=== PATIENT | male | born 1950 | race Asian ===

== ENCOUNTER 2024-04-17 15:57 | Inpatient (IN) | payer MEDICARE, OTHER ==
[~2024-04-17] VITALS: Ht 165.1 cm; Wt 45.4 kg
[2024-04-17 16:32] LABS: BASOPHILS % (AUTO) 0.2 % (0.0-2.0); EOSINOPHILS # (AUTO) 0.1 K/uL (0.0-0.7); EOSINOPHILS % (AUTO) 2.6 % (0.0-6.0); HEMATOCRIT 38 % (39-51); HEMOGLOBIN 12.6 g/dL (13.5-17.5); LYMPHOCYTES # (AUTO) 1.1 K/uL (0.8-4.8); MEAN CORPUSCULAR HEMOGLOBIN 31 PG (26.0-33.0); MEAN CORPUSCULAR HGB CONC 34 g/dl (31.0-36.0); MEAN CORPUSCULAR VOLUME 93 fL (80-96); MONOCYTES # (AUTO) 0.4 K/uL (0.1-1.30); MONOCYTES % (AUTO) 8.3 % (2.0-12.0); NEUTROPHILS # (AUTO) 3.4 K/uL (1.8-8.9); NEUTROPHILS % (AUTO) 66.9 % (43.0-81.0); PLATELET COUNT (AUTO) 170 K/uL (150-450); RED BLOOD CELL COUNT(AUTO) 4.05 MIL/uL (4.5-6.0); RED CELL DISTRIBUTION WIDTH 14.3 % (11.5-15.0); WHITE BLOOD COUNT (AUTO) 5.2 K/uL (4.3-11.0)
[2024-04-17 16:42] LABS: CALCIUM, SERUM 8.8 mg/dL (8.5-10.1); CARBON DIOXIDE 32 mmol/L (21-32); CHLORIDE 109 mmol/L (98-107); CREATININE 1.4 mg/dL (0.6-1.3); GLUCOSE 92 mg/dL (74-106); POTASSIUM 3.8 mmol/L (3.5-5.1); SODIUM SERUM 144 mmol/L (136-145); UREA NITROGEN, BLOOD 15 mg/dL (7-18)
[2024-04-17 16:47] LABS: ALANINE AMINOTRANSFERASE 29 U/L (12-78); ALBUMIN 3.1 g/dL (3.4-5.0); ALCOHOL, BLOOD < 3 mg/dL (0-10); ALKALINE PHOSPHATASE 77 U/L (46-116); ASPARTATE AMINOTRANSFERASE 22 U/L (15-37); BILIRUBIN,DIRECT 0.2 mg/dL (0.0-0.2); BILIRUBIN,TOTAL 0.4 mg/dL (0.2-1.0); SALICYLATE 0.9 mg/dL (2.8-20.0); TOTAL PROTEIN, SERUM 6.5 g/dL (6.4-8.2)
[2024-04-17 16:48] LABS: ACETAMINOPHEN <10 ug/ml (10-30)
[2024-04-17 17:44] LABS: APPEARANCE,URINE CLEAR (CLEAR); BILIRUBIN,URINE NEGATIVE (NEGATIVE); BLOOD, URINE NEGATIVE Ery/uL (NEGATIVE); COLOR,URINE YELLOW (YELLOW); KETONES,URINE NEGATIVE (NEGATIVE); LEUKOCYTE ESTERASE ,URINE NEGATIVE (NEGATIVE); NITRITE, URINE NEGATIVE (NEGATIVE); PROTEIN,URINE NEGATIVE (NEGATIVE); UGLUCOSE NEGATIVE (NEGATIVE); UROBILINOGEN,URINE 0.2 EU/dL (0.2)
[2024-04-17 18:02] LABS: AMPHETAMINE, URINE NEGATIVE (NEGATIVE); BARBITURATE, URINE NEGATIVE (NEGATIVE); BENZODIAZEPINE, URINE NEGATIVE (NEGATIVE); CANNABINOID, URINE NEGATIVE (NEGATIVE); COCCAINE, URINE NEGATIVE (NEGATIVE); OPIATE, URINE NEGATIVE (NEGATIVE); PHENCYCLIDINE SCREEN,URINE NEGATIVE (NEGATIVE)
[2024-04-17] MEDS ORDERED: TEMA7.5C12 PO (18:03)
[2024-04-17] MEDS ORDERED: CALC355O18 PO (18:03)
[2024-04-17] MEDS ORDERED: LATA7.5D RIGHTEYE (18:03)
[2024-04-17] MEDS ORDERED: CLON0.5T4 PO (18:03)
[2024-04-17] MEDS ORDERED: ONDA4TAB5 PO (18:03)
[2024-04-17] MEDS ORDERED: ZIPR80CA2 PO (18:03)
[2024-04-17] MEDS ORDERED: OLAN20TA3 PO (18:03)
[2024-04-17] MEDS ORDERED: MIRT7.5T10 PO (18:03)
[2024-04-17] MEDS ORDERED: TAMS-12 PO (18:03)
[2024-04-17] MEDS ORDERED: MAGN400O6 PO (18:03)
[2024-04-17] MEDS ORDERED: LORA-258 PO (18:03)
[2024-04-17] MEDS ORDERED: PALI3TAB PO (18:03)
[2024-04-17] MEDS ORDERED: CLON0.5T PO (18:03)
[2024-04-17] MEDS ORDERED: SERT25TA PO (18:03)
[2024-04-17] MEDS ORDERED: ACET325T53 PO (18:03)
[2024-04-17] MEDS ORDERED: SENN-18 PO (18:03)
[2024-04-17] MEDS ORDERED: PALI234D IM (18:03)
[2024-04-18 00:05] VITALS: O2SAT 98
[2024-04-18] MEDS ORDERED: TEMAZEPAM 7.5 MG CAPSULE PO PRN (02:00)
[2024-04-18] MEDS ORDERED: LORAZEPAM 0.5 MG TABLET PO PRN (02:00)
[2024-04-18 02:01] VITALS: BP 111/80; TEMP 97.6; O2SAT 98
[2024-04-18] MEDS: BLOOD SUGAR DIAGNOSTIC 1 EACH STRIP IN ONE (02:12)
[2024-04-18] MEDS ORDERED: Medication Not On Formulary EA (Calcium Carb/Mag Hydrox/Simeth (Mylanta Tonight 800-270- PO PRN (02:30)
[2024-04-18] MEDS ORDERED: ACETAMINOPHEN 325 MG TABLET PO PRN (02:30)
[2024-04-18] MEDS ORDERED: MAGNESIUM HYDROXIDE 30 ML UDC PO PRN (02:30)
[2024-04-18 08:00] VITALS: BP 111/79; TEMP 98.6; O2SAT 100
[2024-04-18] MEDS: ENSURE ENLIVE CHOC 237 ML CAN PO SCH (08:50)
[2024-04-18] MEDS ORDERED: clonazePAM 1 MG TABLET PO PRN (11:00)
[2024-04-18] MEDS ORDERED: clonazePAM 0.5 MG TABLET PO PRN (11:00)
[2024-04-18] MEDS: clonazePAM 1 MG TABLET PO SCH (11:14)
[2024-04-18] MEDS: risperiDONE 1 MG TABLET PO SCH (12:05)
[2024-04-18 16:00] VITALS: BP 98/71; TEMP 98.6; O2SAT 97
[2024-04-18] MEDS ORDERED: ENSURE ENLIVE CHOC 237 ML CAN PO SCH (17:00)
[2024-04-18 20:53] VITALS: BP 101/64; TEMP 97.9; O2SAT 99
[2024-04-18] MEDS: LATANOPROST EYE DROP 0.005% 2.5 ML BOTTLE OP SCH (21:41)
[2024-04-18] MEDS: clonazePAM 0.5 MG TABLET PO SCH (21:42)
[2024-04-18] MEDS: POLYETHYLENE GLYCOL 3350 17 GM POWD.PACK PO SCH (21:42)
[2024-04-18] MEDS: OLANZAPINE 10 MG TABLET PO SCH (21:42)
[2024-04-18] MEDS: TAMSULOSIN 0.4 MG CAP.SR.24H PO SCH (21:42)
[2024-04-18] MEDS: SENNOSIDES 8.6 MG TABLET PO SCH (21:42)
[2024-04-19] MEDS: MAG HYDROX/AL HYDROX/SIMETH 30 ML UDC PO PRN (04:26)
[2024-04-19 07:23] LABS: BASOPHILS % (AUTO) 0.2 % (0.0-2.0); EOSINOPHILS # (AUTO) 0.2 K/uL (0.0-0.7); EOSINOPHILS % (AUTO) 3.3 % (0.0-6.0); HEMATOCRIT 38 % (39-51); HEMOGLOBIN 13.1 g/dL (13.5-17.5); LYMPHOCYTES # (AUTO) 1.1 K/uL (0.8-4.8); LYMPHOCYTES % (AUTO) 19.1 % (20.0-44.0); MEAN CORPUSCULAR HEMOGLOBIN 31 PG (26.0-33.0); MEAN CORPUSCULAR HGB CONC 34 g/dl (31.0-36.0); MEAN CORPUSCULAR VOLUME 92 fL (80-96); MONOCYTES # (AUTO) 0.5 K/uL (0.1-1.30); NEUTROPHILS # (AUTO) 4.1 K/uL (1.8-8.9); NEUTROPHILS % (AUTO) 69.4 % (43.0-81.0); PLATELET COUNT (AUTO) 178 K/uL (150-450); RED BLOOD CELL COUNT(AUTO) 4.18 MIL/uL (4.5-6.0); RED CELL DISTRIBUTION WIDTH 13.9 % (11.5-15.0); WHITE BLOOD COUNT (AUTO) 5.9 K/uL (4.3-11.0)
[2024-04-19 08:03] LABS: CALCIUM, SERUM 9.3 mg/dL (8.5-10.1)
[2024-04-19 08:08] VITALS: BP 117/63; TEMP 97.7; O2SAT 99
[2024-04-19] MEDS: MAGNESIUM HYDROXIDE 30 ML UDC PO PRN (11:22)
[2024-04-19 16:18] VITALS: BP 106/79; TEMP 97.8; O2SAT 99
[2024-04-19 20:28] VITALS: BP 125/73; TEMP 97.8; O2SAT 98
[2024-04-20 08:00] VITALS: BP 113/66; TEMP 98.4; O2SAT 100
[2024-04-20] MEDS: risperiDONE 1 MG TABLET PO SCH (13:55)
[2024-04-20 16:00] VITALS: BP 108/68; TEMP 98.6; O2SAT 97
[2024-04-20 21:35] VITALS: BP 105/67; TEMP 97.9; O2SAT 98
[2024-04-20] MEDS ORDERED: risperiDONE 1 MG TABLET PO SCH (22:00)
[2024-04-21 08:00] VITALS: BP 120/65; TEMP 97.9; O2SAT 100
[2024-04-21] MEDS: BENZTROPINE MESYLATE (1 MG) 1 MG TABLET PO SCH (09:52)
[2024-04-21] MEDS: risperiDONE 1 MG TABLET PO SCH (13:16)
[2024-04-21] MEDS: LORAZEPAM 0.5 MG TABLET PO PRN (13:16)
[2024-04-21 16:12] VITALS: BP 102/67; TEMP 98.1; O2SAT 99
[2024-04-21] MEDS: clonazePAM 0.5 MG TABLET PO SCH (17:00)
[2024-04-21 20:44] VITALS: BP 137/78; TEMP 98; O2SAT 98
[2024-04-22] MEDS: ACETAMINOPHEN 325 MG TABLET PO PRN (04:34)
[2024-04-22 08:00] VITALS: BP 121/70; TEMP 97.9; O2SAT 100
[2024-04-22 16:00] VITALS: BP 108/64; TEMP 97.8; O2SAT 99
[2024-04-22 20:00] VITALS: BP 107/66; TEMP 97.9; O2SAT 98
[2024-04-22 21:20] VITALS: BP 107/66; TEMP 97.9; O2SAT 98
[2024-04-23 08:00] VITALS: BP 127/77; TEMP 97.8; O2SAT 98
[2024-04-23] MEDS: OLANZAPINE ZYDIS 5 MG TAB.RAPDIS SL ONE (10:42)
[2024-04-23 16:00] VITALS: BP 92/67; TEMP 98.6; O2SAT 97
[2024-04-23 20:00] VITALS: BP 95/65; TEMP 98.4; O2SAT 98
[2024-04-24] MEDS: LORAZEPAM 0.5 MG TABLET PO ONE (06:20)
[2024-04-24 08:00] VITALS: BP 109/76; TEMP 98.5; O2SAT 100
[2024-04-24 16:00] VITALS: BP 104/65; TEMP 97.9; O2SAT 97
[2024-04-24 21:02] VITALS: BP 101/68; TEMP 98.2; O2SAT 97
[2024-04-25 08:00] VITALS: BP 110/76; TEMP 98; O2SAT 100
[2024-04-25] MEDS: OLANZAPINE 5 MG TABLET PO SCH (08:45)
[2024-04-25 16:00] VITALS: BP 102/65; TEMP 98; O2SAT 97
[2024-04-25 20:38] VITALS: BP 107/64; TEMP 98; O2SAT 98
[2024-04-26] MEDS: TEMAZEPAM 7.5 MG CAPSULE PO PRN (00:05)
[2024-04-26 08:37] VITALS: BP 94/66; TEMP 97.5; O2SAT 96
[2024-04-26 16:25] VITALS: BP 107/65; TEMP 97.6; O2SAT 98
[2024-04-26 21:26] VITALS: BP 93/80; TEMP 97.6; O2SAT 100
[2024-04-27 08:00] VITALS: BP 102/73; TEMP 98.6; O2SAT 98
[2024-04-27 16:00] VITALS: BP 106/68; TEMP 98.7; O2SAT 100
[2024-04-27 20:01] VITALS: BP 113/69; TEMP 98; O2SAT 100
[2024-04-28 08:00] VITALS: BP 104/60; TEMP 97.8; O2SAT 100
[2024-04-28 16:00] VITALS: BP 103/65; TEMP 97.9; O2SAT 100
[2024-04-28 20:28] VITALS: BP 114/70; TEMP 98.4; O2SAT 100
[2024-04-29 08:00] VITALS: BP 117/76; TEMP 97.8; O2SAT 97
== END 2024-04-29 13:30 | DRG 885 ==
LOC: ER 16:07 → GPS 04-18 00:14
PROVIDERS: ADMIT Psychiatry & Neurology Psychosomatic Medicine; ATTEND Nurse Practitioner Acute Care
DX: F20.9 Schizophrenia, unspecified (principal); N17.0 Acute kidney failure with tubular necrosis; E44.1 Mild protein-calorie malnutrition; Z68.1 Body mass index [BMI] 19.9 or less, adult; Z20.822 Contact with and (suspected) exposure to COVID-19; E88.09 Other disorders of plasma-protein metabolism, not elsewhere classified; F39 Unspecified mood [affective] disorder; H40.9 Unspecified glaucoma; K59.00 Constipation, unspecified; N40.0 Benign prostatic hyperplasia without lower urinary tract symptoms; E86.9 Volume depletion, unspecified; Z73.6 Limitation of activities due to disability
CPT/HCPCS: 36415; 80048-TC; 80061-TC; 80076-TC; 82962-TC; 85025-TC; 87081-TC; 97112-TC; 97116-TC; 97530-TC; G0480